=== PATIENT | male | born 1990 | race Caucasian/White ===

== ENCOUNTER 2019-05-18 18:56 | Emergency (ER) | payer BC ==
[~2019-05-18] VITALS: Ht 185.4 cm; Wt 86.4 kg
[2019-05-18] MEDS ORDERED: CYMB1CAP5 PO (19:08)
[2019-05-18] MEDS ORDERED: HYDR-3363 PO (19:08)
[2019-05-18] MEDS ORDERED: CHLO25CA PO (19:08)
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
[2019-05-19] MEDS ORDERED: CYCL5TAB PO (00:04)
[2019-05-19 00:17] VITALS: BP 128/82
== END 2019-05-19 00:20 | disposition home or self-care (01) ==
LOC: M ED 18:56
DX: M54.2 Cervicalgia (principal); Z72.0 Tobacco use; M50.20 Other cervical disc displacement, unspecified cervical region; Z79.899 Other long term (current) drug therapy; Z88.1 Allergy status to other antibiotic agents; Z88.0 Allergy status to penicillin

== ENCOUNTER 2019-11-15 12:41 | Emergency (ER) | payer BC ==
[~2019-11-15] VITALS: Ht 185.4 cm; Wt 84.1 kg
[2019-11-15 12:41] VITALS: BP 127/67
[~2019-11-15 12:41] MED LIST: CHLO25CA PO; CYCL5TAB PO; CYMB1CAP5 PO; HYDR-3363 PO
--- NOTE | 2019-11-15 15:18 | REP ---
Scrotal ultrasound for bilateral testicular pain in a patient with history of bilateral varicoceles: There are no comparison studies. The right testis measures 3.9 x 1.9 x 2.7 cm. Left testis measures 3.8 1.8 x 2.0 cm. The testes are normal size. There are no testicular cysts or masses. There are micro calcifications in the left mid testis. There is a 2 mm right epididymal head cyst and a 3 mm left epididymal head cyst. The epididymi are otherwise unremarkable. With color Doppler ultrasound there are bilateral varicoceles. The There is vascular flow in both testes. The Doppler resistive index in the parenchymal arteries of the right testis is 0.6 and left testis 0.5. There are no hydroceles. Impression: There are bilateral varicoceles. There is vascular flow in both testes. There are no testicular masses or cysts. There are small bilateral epididymal head cysts. There are micro calcifications in the left testis. Therefore, consideration might be given to periodic ultrasonographic surveillance with ultrasound to monitor for testicular malignancy. Electronically Signed by Eloy Chris MD 11/15/2019 03:09 P
--- NOTE | 2019-11-16 14:47 | ED PDOC ---
Post-Departure Follow-Up certified letter sent to pt re formal reading of scrotal us for fu Bertha Skinner MD Nov 16, 2019 14:47
== END 2019-11-15 16:15 | disposition left against medical advice (07) ==
LOC: M ED 12:41
DX: Z53.21 Procedure and treatment not carried out due to patient leaving prior to being seen by health care provider (principal)

== ENCOUNTER → 2020-05-15 | Outpatient (REF) | payer BC | LOC: M LAB REF 10:07 | PROVIDERS: ATTEND Nurse Practitioner Family | DX: J02.9 Acute pharyngitis, unspecified (principal) ==

== ENCOUNTER 2020-12-03 14:20 | Emergency (ER) | payer BC ==
[~2020-12-03] VITALS: Ht 185.4 cm; Wt 86.8 kg
[2020-12-03] MEDS ORDERED: CLIN300C6 (14:30)
[2020-12-03] MEDS ORDERED: NS 1,000 ML IV ONE (17:15)
[2020-12-03] MEDS: ALBUTEROL 90 MCG/ACT 8GM HFA INHALER INH SCH ×2 (17:34→17:40)
[2020-12-03] MEDS ORDERED: diphenhydrAMINE 50MG/ML VIAL (J1200) IV STA (17:36)
[2020-12-03] MEDS ORDERED: ISOVUE-370 76% 100ML VIAL As Ordered ONE (17:43)
[2020-12-03 17:50] LABS: BASO % 0.5 % (0.0-1.0); EOS # 0.1 10^3/uL (0.0-0.5); EOS % 1.4 % (0.0-3.0); HEMATOCRIT 44.5 % (42.0-52.0); HEMOGLOBIN 14.2 g/dl (13.5-17.5); LYMPH # 1.1 10^3/uL (1.5-5.0); LYMPH % 26.9 % (24.0-44.0); MEAN CORPUSCULAR HEMOGLOBIN 28.7 pg (27.0-33.0); MEAN CORPUSCULAR HGB CONC 31.9 g/dl (32.0-36.5); MEAN CORPUSCULAR VOLUME 90.1 fl (80.0-96.0); MONO # 0.4 10^3/uL (0.0-0.8); MONO % 8.3 % (0.0-5.0); NEUTROPHILS # 2.6 10^3/uL (1.5-8.5); NEUTROPHILS % 62.7 % (36.0-66.0); PLATELET COUNT, AUTOMATED 195 10^3/uL (150-450); RED BLOOD COUNT 4.94 10^6/uL (4.30-6.10); WHITE BLOOD COUNT 4.2 10^3/uL (4.0-10.0)
[2020-12-03 18:24] LABS: ALBUMIN 4.1 GM/DL (3.2-5.2); ALT/SGPT 31 U/L (12-78); BILIRUBIN,DIRECT < 0.1 MG/DL (0.0-0.2); BILIRUBIN,TOTAL 0.3 MG/DL (0.2-1.0); CK-MB VALUE MASS < 1.0 NG/ML (<3.6); CPK CREATINE PHOSPHOKINASE 106 U/L (39-308); MB/CK RELATIVE INDEX 0.94 (< OR =4); NT-PRO BNP 17 PG/ML (<125); TOTAL PROTEIN 7.2 GM/DL (6.4-8.2); TROPONIN I < 0.02 NG/ML (< 0.10)
[2020-12-03 18:25] LABS: FREE THYROXINE INDEX 2.1 % (1.4-3.8); LIPASE 180 U/L (73-393); T UPTAKE 29 % (33-40); THYROXINE (T4) 7.4 UG/DL (4.5-12.0)
[2020-12-03 18:27] LABS: ERYTHROCYTE SEDIMENTATION RATE 2 mm/hr (0-15)
--- NOTE | 2020-12-03 18:35 | REPVR ---
PROCEDURE INFORMATION: Exam: CT Abdomen And Pelvis Without Contrast Exam date and time: 12/03/2020 5:45 PM Age: 30 years old Clinical indication: Other: Sob- exertional, cp, fatigue TECHNIQUE: Imaging protocol: Computed tomography of the abdomen and pelvis without contrast. Radiation optimization: All CT scans at this facility use at least one of these dose optimization techniques: automated exposure control; mA and/or kV adjustment per patient size (includes targeted exams where dose is matched to clinical indication); or iterative reconstruction. COMPARISON: No relevant prior studies available. FINDINGS: Liver: Unremarkable. Gallbladder and bile ducts: Normal. No calcified stones. No ductal dilation. Pancreas: Normal. No ductal dilation. Spleen: Normal. No splenomegaly. Adrenal glands: Normal. No mass. Kidneys and ureters: Normal. No hydronephrosis. Stomach and bowel: Unremarkable. No obstruction. No mucosal thickening. Appendix: No evidence of appendicitis. Intraperitoneal space: Unremarkable. No free air. No significant fluid collection. Vasculature: Unremarkable. No abdominal aortic aneurysm. Lymph nodes: Multiple small mesenteric lymph nodes with the largest measuring 8 mm. Urinary bladder: Unremarkable as visualized. Reproductive: Unremarkable as visualized. Bones/joints: Unremarkable. No acute fracture. Soft tissues: Unremarkable. IMPRESSION: No acute findings. Multiple small mesenteric lymph nodes. Electronically signed by: Kraig Morrison On 12/03/2020 18:35:02 PM
--- NOTE | 2020-12-03 18:38 | REPVR ---
PROCEDURE INFORMATION: Exam: CT Chest Without Contrast; Diagnostic Exam date and time: 12/03/2020 5:45 PM Age: 30 years old Clinical indication: Shortness of breath and other: Fatigue; Chest pain; Additional info: Sob- exertional, cp, fatigue TECHNIQUE: Imaging protocol: Diagnostic computed tomography of the chest without contrast. Radiation optimization: All CT scans at this facility use at least one of these dose optimization techniques: automated exposure control; mA and/or kV adjustment per patient size (includes targeted exams where dose is matched to clinical indication); or iterative reconstruction. COMPARISON: No relevant prior studies available. FINDINGS: Lungs: Unremarkable. No consolidation. No masses. Pleural spaces: Unremarkable. No pneumothorax. No pleural effusion. Heart: Unremarkable. No cardiomegaly. No pericardial effusion. Aorta: Unremarkable. No aortic aneurysm. Lymph nodes: Unremarkable. No enlarged lymph nodes. Bones/joints: Multiple Schmorl's nodes Soft tissues: Unremarkable. IMPRESSION: No acute abnormality. Electronically signed by: Kragi Morrison On 12/03/2020 18:38:05 PM
[2020-12-03 20:24] VITALS: BP 132/83
[2020-12-03] MEDS ORDERED: CLEO300C2 PO (20:30)
[2020-12-03] MEDS ORDERED: CEPHALEXIN 500 MG CAP PO ONE (20:30)
--- NOTE | 2020-12-04 08:55 | ECGEPIP ---
[facility] - ED Test Date: 2020-12-03 Pat Name: ELY SHROT Department: Room: - Gender: Male Sheet Layer: TUYET : 1990 Requested By: NICOLE Benítez PA-C Order Number: [id number] Reading MD: Elma Lozano Measurements Intervals [place] Rate: 71 P: 73 NC: 156 QRS: 88 QRSD: 102 T: 78 QT: 385 QTc: 420 Interpretive Statements SINUS RHYTHM WITH SINUS ARRHYTHMIA NO PRIOR Electronically Signed on 12-04-2020 8:55:11 EST by Elma Lozano
== END 2020-12-03 20:37 | disposition home or self-care (01) ==
LOC: M ED 14:20
DX: L03.113 Cellulitis of right upper limb (principal); R06.02 Shortness of breath; R53.83 Other fatigue; R07.9 Chest pain, unspecified; R19.5 Other fecal abnormalities; Z79.899 Other long term (current) drug therapy; Z88.0 Allergy status to penicillin; Z88.1 Allergy status to other antibiotic agents; Z88.8 Allergy status to other drugs, medicaments and biological substances

== ENCOUNTER → 2021-01-22 | Outpatient (CLI) | payer BC ==
[~2021-01-22] MED LIST changes: +CLEO300C2 PO; +CLIN300C6
[2021-01-24 05:07] LABS: MUMPS VIRUS IgG ANTIBODY 12.9 AU/mL (Immune >10.9); RUBELLA IgG FOR TORCH EVAL 1.33 index (Immune >0.99); RUBEOLA IgG ANTIBODY 15.2 AU/mL (Immune >16.4)
== END ==
LOC: M LAB 16:51
PROVIDERS: ATTEND Family Medicine
DX: Z78.9 Other specified health status (principal)